=== PATIENT | male | born 1940 | race Caucasian/White ===

== ENCOUNTER 2020-04-19 07:17 | Outpatient (CLI) | payer MEDICARE, BC, SELFPAY ==
[2020-04-20 14:27] LABS: COVID-19 RT-PCR Result NEGATIVE (Negative)
== END 2020-04-19 07:37 ==
PROVIDERS: PCP Family Medicine; Visit Provider Family Medicine
DX: Z11.59 Encounter for screening for other viral diseases (principal); Z01.818 Encounter for other preprocedural examination
CPT/HCPCS: U0003

== ENCOUNTER 2020-04-22 04:38 | Outpatient (CLI) | payer MEDICARE, BC, SELFPAY ==
[2020-04-22] MEDS: Albuterol HFA 18 GM 200 PUFF INH IH (11:23)
[2020-04-22] MEDS: Inhaler, Assist Device 1 EACH MC (11:24)
--- NOTE | 2020-04-28 07:36 | W.PFT ---
Date of service: 04/22/20 Time of Service: 10:14 Pulmonary Function Test Result Interpretation Spirometry: Shows no evidence of obstructive airways disease, no bronchodilator response Lung Volumes: Shows mild restriction Diffusion Capacity: Moderately decreased, which is normal when corrected to alveolar volume Airway Pressure: Normal Impression Mild restrictive lung disease, associated with moderate diffusion defect which is normal when corrected to alveolar volume. While this may represent underlying true, parenchymal pulmonary restrictive disease, chest wall restriction from underlying obesity and resultant hypoventilation is also a consideration. Clinical Correlation therefore is recommended.
== END 2020-04-22 04:58 ==
PROVIDERS: PCP Family Medicine; Visit Provider Family Medicine
DX: R06.02 Shortness of breath (principal)
CPT/HCPCS: 94060; 94726; 94729